=== PATIENT | male | born 1980 | race Caucasian/White ===

== ENCOUNTER 2017-06-02 03:40 | Emergency (ER) | payer OTHER ==
[~2017-06-02] VITALS: Ht 177.8 cm; Wt 82.0 kg
[~2017-06-02 03:40] MED LIST: AUGM875 PO; CETI1TAB21 PO; LORT5TAB PO; TAB-TAB PO
[2017-06-02 03:43] VITALS: BP 147/91; PULSE 65; RESP 18; TEMP 98.1; O2SAT 99
[2017-06-02] MEDS ORDERED: ALLE4TAB10 PO (03:43)
[2017-06-02] MEDS ORDERED: LIDOCAINE 1%/EPINEPHrine 1:100,000 SOLN 20 ML VIAL INFIL ONE (03:45)
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
[2017-06-02] MEDS ORDERED: IBUP800T23 PO (04:53)
[2017-06-02] MEDS ORDERED: AUGM875T3 PO (04:53)
[2017-06-02] MEDS ORDERED: IBUPROFEN 800 MG TAB PO ONE (05:00)
[2017-06-02] MEDS ORDERED: AMOXICILLIN/CLAVULANATE K 875 MG TAB PO ONE (05:00)
--- NOTE | 2017-06-02 05:21 | RADRPT ---
EXAM DATE/TIME: 06/02/2017 04:12 [facility] COMPARISON: No previous studies available for comparison. INDICATIONS : Leg pain due to dog bite. MEDICAL HISTORY : None. SURGICAL HISTORY : None. ENCOUNTER: Initial ACUITY: 1 day PAIN SCORE: 5/10 LOCATION: Right Tibia/Fibula FINDINGS: Two view examination of the right tibia demonstrates no evidence of fracture or dislocation. Bony mi neralization is normal. The soft tissue structures are intact. CONCLUSION: Negative examination of the tibia and fibula. Cal Honeycutt MD on June 02, 2017 at 5:20 Board Certified Radiologist. This report was verified electronically.
== END 2017-06-02 05:09 | disposition home or self-care (01) ==
LOC: NEPD 03:40
DX: S81.851A Open bite, right lower leg, initial encounter (principal); W54.0XXA Bitten by dog, initial encounter; Y92.009 Unspecified place in unspecified non-institutional (private) residence as the place of occurrence of the external cause; Y99.0 Civilian activity done for income or pay
CPT/HCPCS: 12002; 73590